=== PATIENT | male | born 1950 | race Asian ===

== ENCOUNTER 2020-04-07 09:56 | Inpatient (IN) | payer OTHER ==
[~2020-04-07] VITALS: Ht 157.5 cm; Wt 56.2 kg
--- NOTE | 2020-04-07 10:25 | NUR ---
BIBFAMILY FROM HOME TO ER BED 12. AAOX4. NOT IN RESP DISTRESS. AMBUALTORY. CAME IN FOR URINARY RETENTION SINCE LAST NIGHT AND HEMATURIA. PAIN IS 8/10. NOTED BRIGHT RED BLOOD. MD WAS AT THE BEDSIDE FOR EVAL. ORDERS RECEIVED, NOTED AND CARRIED OUT.
[2020-04-07] MEDS ORDERED: LIDOCAINE 2% JEL UROJET 10 ML MM ONE ×3 (10:29→13:12)
[2020-04-07] MEDS ORDERED: IV NS 0.9% 1,000 ML BAG IV ONE (10:30)
--- NOTE | 2020-04-07 10:45 | NUR ---
COUDE CATH INSERTED FR16. STRICT STERILE TECHNIQUE OBSERVED DURING PROCEDURE.BRIGHT RED BLOOD URINARY OUTPUT. SPICIMEN SENT TO LAB
[2020-04-07 11:05] LABS: BASOPHILS % (AUTO) 0.3 % (0.0-2.0); EOSINOPHILS % (AUTO) 0.6 % (0.0-6.0); HEMATOCRIT 41 % (39-51); HEMOGLOBIN 13.4 g/dL (13.5-17.5); LYMPHOCYTES # (AUTO) 1.3 /CMM (0.8-4.8); LYMPHOCYTES % (AUTO) 12.4 % (20.0-44.0); MEAN CORPUSCULAR HGB CONC 33 g/dl (31.0-36.0); MEAN CORPUSCULAR VOLUME 88 fL (80-96); MONOCYTES # (AUTO) 0.4 /CMM (0.1-1.30); MONOCYTES % (AUTO) 4.2 % (2.0-12.0); NEUTROPHILS # (AUTO) 8.3 /CMM (1.8-8.9); NEUTROPHILS % (AUTO) 82.5 % (43.0-81.0); PLATELET COUNT (AUTO) 321 /CMM (150-450); RED BLOOD CELL COUNT(AUTO) 4.59 MIL/uL (4.5-6.0); WHITE BLOOD COUNT (AUTO) 10.1 K/uL (4.3-11.0)
[2020-04-07 11:06] LABS: BILIRUBIN,URINE LARGE (NEGATIVE); COLOR,URINE RED (YELLOW); LEUKOCYTE ESTERASE ,URINE Large (NEGATIVE); NITRITE, URINE Positive (NEGATIVE); PH,URINE 8.5 (5.0-8.0); PROTEIN,URINE >=300 mg/dl (NEGATIVE); UGLUCOSE 100 MG/DL mg/dL (NEGATIVE)
[2020-04-07 11:11] LABS: RBC,URINE TOO NUMEROUS TO COUN /HPF (0-2); WBC,URINE 0-2 /HPF (0-3)
[2020-04-07 11:13] LABS: BACTERIA,URINE Rare /HPF (None Seen); SQUAMOUS EPITHELIAL CELL,UR 0-2 /HPF (None Seen)
[2020-04-07 11:22] LABS: CALCIUM, SERUM 8.8 mg/dL (8.5-10.1); CREATININE 1.2 mg/dL (0.6-1.3); POTASSIUM 3.8 mmol/L (3.5-5.1)
--- NOTE | 2020-04-07 12:12 | NUR ---
TRAFFIC CONTROLLER CABLE/MED RECON UNABLE TO UPDATE HOME MEDICATION INFORMATION. SPOKE WITH TANNER (SON), STATED "HE TAKES MEDICATION FROM [place]".
[2020-04-07] MEDS ORDERED: MORPHINE SULFATE INJ 4 MG/ML DISP.SYRIN ONE (12:30)
[2020-04-07] MEDS ORDERED: TAMS-12 PO (12:30)
--- NOTE | 2020-04-07 12:30 | NUR ---
COUDE CATH WAS REPLACED WITH 3WAY CATH AND STARTED ON BLADDER IRRIGATION.
[2020-04-07] MEDS: MORPHINE SULFATE INJ 4 MG/ML DISP.SYRIN IV PRN (12:40)
--- NOTE | 2020-04-07 13:47 | NUR ---
3 WAY CATH WAS DISCONTINUED TO AND RESTARTED A PARKS CATH 24FR. FLUSHED AND WITH NS. NOTED CLOTS AND BRIGHT RED BLOOD
[2020-04-07] MEDS ORDERED: MAGNESIUM HYDROXIDE 30 ML UDC PO PRN (14:00)
[2020-04-07] MEDS ORDERED: Z GUARD REMEDY 2 OZ OINT TP PRN (14:00)
[2020-04-07] MEDS ORDERED: ONDANSETRON HCL/PF 4 MG/2 ML VIAL IVP PRN (14:00)
[2020-04-07] MEDS ORDERED: MAG HYDROX/AL HYDROX/SIMETH 30 ML UDC PO PRN (14:00)
--- NOTE | 2020-04-07 14:08 | NUR ---
RAPID COVID NEGATIVE PER LAB.
--- NOTE | 2020-04-07 14:20 | NUR ---
PARKS CATH MANUALLY IRRIGATED WITH NS. USED 2750ML OF ND AND OUTPUT NOTED AT 3375ML BRIGHT RED BLOOD WITH CLOTS. PT VERBALIZED RELIEF AND OUTPUT IS NOW CLEAR WITH TINGED OF BLOOD.
[2020-04-07] MEDS: CEFTRIAXONE 1 G in IV D5W 50 ML IV SCH (14:24)
--- NOTE | 2020-04-07 14:58 | NUR ---
BED 308-2 RN IMMACULATE
--- NOTE | 2020-04-07 15:15 | NUR ---
REPORT GIVEN TO LOURDES DUBOIS FOR KAYY
--- NOTE | 2020-04-07 15:59 | NUR ---
PT TRANSPORTED TO [facility] WITH EMT AND RN AT BEDSIDE W/ ACLS PROTOCOL. NAD NOTED DURING TRANSPORT.
--- NOTE | 2020-04-07 16:00 | NUR ---
RN ADMITTING NOTES PT TRANSPORTED BY [facility] TO UNIT AT THIS TIME. RECEIVED REPORT FROM [facility] RN. PT AOX4. PT ABLE TO VERBALIZE NEEDS IN [place]. NO SOB NOTED, NO S/S OF ANY ACUTE DISTRESS NOTED, NO C/O PAIN AT THIS TIME. PT NOTED WITH PARKS CATHETER DRAINING TO GRAVITY LIGHT RED URINE OUTPUT. IV ACCESS NOTED IN LAC G#20, INTACT, PATENT AND FLUSHING WELL. SKIN WARM TO TOUCH, PT STABLE ON RA SATURATING AT 99%. LUNGS ARE CLEAR TO AUSCULTATION, ACTIVE BOWEL SOUNDS IN ALL FOUR QUADRANTS, GOOD CIRCULATION NOTED, CAPILLARY REFILL <3SECONDS, PULSES PRESENT BILATERALLY, ASPIRATIONS AND SAFETY PRECAUTIONS IN PLACE AND MAINTAINED AT ALL TIMES. BED IN LOWEST LOCKED POSITION, SIDE RAILS UP, HOB ELEVATED, TABLE AND CALL LIGHT WITHIN REACH. WILL CONTINUE TO MONITOR.
[2020-04-07] MEDS: IV NS 0.9% 1,000 ML IV PRN (16:32)
[2020-04-07 16:39] VITALS: BP 157/78
--- NOTE | 2020-04-07 18:22 | NUR ---
ASSESSED PT', SKIN IS INTACT, PNEUMATIC COMPRESSION DEVICES APPLIED D/T DVT SCORE OF 2. WILL CONTINUE TO MONITOR
--- NOTE | 2020-04-07 18:45 | NUR ---
OLGA ([phone]), PT's [id number] CALLED, WAS UPDATED AND SPOKE WITH PT. WILL CONTINUE TO MONITOR
--- NOTE | 2020-04-07 19:04 | NUR ---
RN CLOSING NOTES PT AWAKE IN BED AT THIS TIME AT THIS TIME. PT REMAINED STABLE THROUGHOUT SHIFT. PT IS STABLE ON RA. ALL CARE, NEED, MEDICATIONS AND TREATMENT ADMINISTERED ANTICIPATED PER ORDER. PT KEPT CLEAN AND DRY. LINENS CHANGED AND KEPT CLEAN. PT ASSISTED PRN. ASPIRATION, RESPIRATION, AND SAFETY PRECAUTION IN PLACE AND MAINTAINED AT ALL TIMES. BED IN LOWEST LOCKED POSITION, HOB ELEVATED, SIDE RAILS UP X 2, CALL LIGHT AND TABLE WITHIN REACH. WILL ENDORSE TO CORN LAB TECHNICIAN NURSE FOR KAYY
[2020-04-07 20:00] VITALS: BP 144/75
[2020-04-08 06:35] LABS: BASOPHILS % (AUTO) 0.2 % (0.0-2.0); EOSINOPHILS % (AUTO) 0.4 % (0.0-6.0); HEMATOCRIT 29 % (39-51); LYMPHOCYTES # (AUTO) 1.4 /CMM (0.8-4.8); LYMPHOCYTES % (AUTO) 14.4 % (20.0-44.0); MEAN CORPUSCULAR HGB CONC 34 g/dl (31.0-36.0); MEAN CORPUSCULAR VOLUME 87 fL (80-96); MONOCYTES # (AUTO) 0.6 /CMM (0.1-1.30); NEUTROPHILS # (AUTO) 7.6 /CMM (1.8-8.9); PLATELET COUNT (AUTO) 268 /CMM (150-450); RED BLOOD CELL COUNT(AUTO) 3.35 MIL/uL (4.5-6.0); WHITE BLOOD COUNT (AUTO) 9.7 K/uL (4.3-11.0)
[2020-04-08 06:50] LABS: CALCIUM, SERUM 8.6 mg/dL (8.5-10.1); PHOSPHORUS 2.7 mg/dL (2.5-4.9); POTASSIUM 4.1 mmol/L (3.5-5.1)
--- NOTE | 2020-04-08 07:35 | NUR ---
MS RN OPENING NOTES RECEIVED PATIENT IN BED, AWAKE, A/O X4. PATIENT ON ROOM AIR; BREATHING EVEN AND UNLABORED. NO COMPLAINS OF PAIN AT THIS TIME. LAC IV ACCESS G # 20 PRESENT AND INFUSING NS @75 MLS/HR. PARKS CATH PRESENT WITH HEMATURIA PRESENT IN THE OUTPUT. SAFETY PRECAUTIONS IN PLACE; BED IN LOW POSITION AND LOCKED, RAILS UP X2, CALL LIGHT WITHIN REACH. WILL CONTINUE TO MONITOR PATIENT.
[2020-04-08 08:00] VITALS: BP 168/86
[2020-04-08] MEDS: TAMSULOSIN 0.4 MG CAP.SR.24H PO SCH (08:03)
[2020-04-08] MEDS: HYDROCODONE/APAP 5/325MG TABLET PO PRN ×2 (10:00→14:47)
--- NOTE | 2020-04-08 10:03 | NUR ---
MS RN NOTES PATIENT WITH HEMATURIA NOTED AND COMPLAINING OF PAIN WITH URINATION. PRN NORCO ADMINISTERED.
[2020-04-08] MEDS: CEFTRIAXONE 1 G in IV D5W 50 ML IV SCH (13:36)
--- NOTE | 2020-04-08 14:00 | NUR ---
MS RN NOTES PATIENT STARTED ON CONTINUES BLADDER IRRIGATION PER MD ORDER.
--- NOTE | 2020-04-08 14:47 | NUR ---
MS RN NOTES PATIENT COMPLAINING OF PAIN WITH URINATION. PRN NORCO ADMINISTERED.
[2020-04-08 16:00] VITALS: BP 137/68
[2020-04-08] MEDS: IV NS 0.9% 1,000 ML IV PRN (18:07)
--- NOTE | 2020-04-08 19:16 | NUR ---
MS RN CLOSING NOTES PATIENT REMAINS IN BED, AWAKE, A/O X4. PATIENT ON ROOM AIR; BREATHING EVEN AND UNLABORED. PAIN TREATED WITH PRN NORCO. LAC IV ACCESS G # 20 PRESENT AND INFUSING NS @75 MLS/HR. PARKS CATH PRESENT WITH HEMATURIA PRESENT IN THE OUTPUT; CONTINUES BLADDER IRRIGATION IS RUNNING. ALL NEEDS ATTENDED THROUGHOUT THE DAY. SAFETY PRECAUTIONS IN PLACE; BED IN LOW POSITION AND LOCKED, RAILS UP X2, CALL LIGHT WITHIN REACH. WILL ENDORSE TO BARN AND PROPERTY MANAGER NURSE.
[2020-04-08] MEDS: MORPHINE SULFATE INJ 2 MG/ML DISP.SYRIN IV PRN ×2 (20:30→22:09)
--- NOTE | 2020-04-08 20:35 | NUR ---
BIAS MACHINE OPERATOR HELPER INITIAL NOTES RECEIVED REPORT FROM AM NURSE AND SEEN PT IN BED WITH BLADDER IRRIGATION AT 500ML/HR . NOTICED STILL HAVE BLOOD IN HIS URINE AND SOME CLOTS. PT COMPLAINED OF PAIN , FACIAL GRIMACE NOTED AND HE WANTS TO STOP THE IRRIGATION. SPOKE TO THE PATIENT BUT BECAUSE OF LANGUAGE BARRIER, HE CALLED HIS SON JOVON HIS CELLPHONE AND I SPOKE TO HIM AND EXPLAINED TO HIM WHY THE PATIENT STILL ON BLADDER IRRIGATION , SON UNDERSTOOD AND HE'S THE ONE EXPLAINED TO HIS DAD. I ALSO TOLD HIM THAT WE JUST GIVE PAIN MEDICATION TO RELIEVE IT. NO SIGNS OF ANY DISTRESS NOTED. HE ALSO ON VIF NS AT 75ML/HR INFUSING AT THIS TIME. KEPT HIM WARM AND COMFORTABLE AT ALL TIMES. WILL CONTINUE MONITORING. PLACE CALL LIGHT AT REACH.
--- NOTE | 2020-04-08 20:40 | NUR ---
MS/RN NOTES PATIENT EXPERIENCING PAIN. PATIENT GIVEN MORPHINE 2 MG IVP. V/S ARE STABLE. WILL CONTINUE TO MONITOR.
[2020-04-08 20:42] VITALS: BP 158/81
--- NOTE | 2020-04-08 22:09 | NUR ---
ms retail client manager notes pt still complaining of bladder pain and asking for another pain shot. 2 mg morphine administered by Charge nurse Joy watst iVP as ordered to complete the dose of 4 mg morphine. then i checked the bladder by using bladder scan and found out 350 ml still retaining and noticed some blood clots on his urine output. pain on and off then Me and Rachel/Rn decided to do manual bladder irrigation to checked if have more blood clots inside his penis that doesn't go trough the lee .Irrigate with 100 ml of NS then aspirate and noticed big blood clots came out. we did 2 more then noticed water freely came out so started to connect again to bladder irrigation 500 ml/hr as ordered. Then Patient stated "good"with smile on his face that means he feel relieved . kept him warm and comfortable at all time. place call light at reach. will continue monitoring.
--- NOTE | 2020-04-09 | NUR ---
ms plasma cutting machine operator notes pt resting at this time with bladder irrigation still going on . IVF still infusing as well. still have blood clots noted from his urine output. No sign sof nay distress noted. kept him warm and comfortable at all times. will continue monitoring.
--- NOTE | 2020-04-09 03:30 | NUR ---
outdoor advertising leasing agent notes pt woke up and started moaning and screaming for pain , and noticed he's holding he's Penis and saying "pain pain pain. i did another manual irrigation and noticed 3 clots come out. then after that patient asked for pain medication. Morphine will administer by another nurse as order. kept him warm , comfortable and safe at all times. Continue bladder irrigation infusing again as ordered.
[2020-04-09] MEDS: MORPHINE SULFATE INJ 4 MG/ML DISP.SYRIN IV PRN ×2 (03:56→11:02)
--- NOTE | 2020-04-09 04:35 | NUR ---
ms riley notes pt checked he's sleeping at this time no signs of any discomfort and any acute distress noted. Bladder irrigation still going on . kept him warm and comfortable at all times. will continue monitoring. place call light at reach.
[2020-04-09 07:19] LABS: BASOPHILS % (AUTO) 0.5 % (0.0-2.0); EOSINOPHILS % (AUTO) 0.8 % (0.0-6.0); HEMATOCRIT 28 % (39-51); HEMOGLOBIN 9.2 g/dL (13.5-17.5); LYMPHOCYTES # (AUTO) 1.6 /CMM (0.8-4.8); LYMPHOCYTES % (AUTO) 17.3 % (20.0-44.0); MEAN CORPUSCULAR HGB CONC 33 g/dl (31.0-36.0); MEAN CORPUSCULAR VOLUME 88 fL (80-96); MONOCYTES # (AUTO) 0.6 /CMM (0.1-1.30); MONOCYTES % (AUTO) 6.4 % (2.0-12.0); PLATELET COUNT (AUTO) 268 /CMM (150-450); RED BLOOD CELL COUNT(AUTO) 3.15 MIL/uL (4.5-6.0); WHITE BLOOD COUNT (AUTO) 9.3 K/uL (4.3-11.0)
--- NOTE | 2020-04-09 07:23 | NUR ---
MS MATTRESS MAKER CLOSING NOTES PT AWAKE AND ALERT SEEMS NOT IN PAIN AT THIS TIME. HE STATED "GOOD". HE STILL ON CONTINOUS BLADDER IRRIGATION . AND NOTICED AT THIS TIME CLEAR OUTPUT COMING OUT. SLEPT AFTER MORPHINE 4 MG GIVEN EARLIER. NO SIGNS OF ANY ACUTE DISTRESS NOTED. KEPT HIM WARM AND COMFORTABLE AT ALL TIMES. ENDORSE TO AM NURSE FOR CONTINUITY OF CARE. PLACE CALL LIGHT AT REACH.
--- NOTE | 2020-04-09 07:30 | NUR ---
MS RN OPENING NOTES PATIENT RECEIVED IN BED. A/O X3. NO SOB NOTED. NO S/S OF RESPIRATORY DISTRESS. IV ACCESS ON L AC #20 G. PARKS CATH DRAINING BLOODY URINE WITH CLOTS WITH OUTPUT OF 1L, 0.9 NaCl IRRIGATION ONGOING @ 600 ML/HR. SAFETY MEASURES MAINTAINED. BED IN LOWEST POSITION, BRAKES LOCKED. SIDE RAILS UP. CALL LIGHT WITHIN REACH. WILL CONTINUE PLAN OF CARE. WILL CONTINUE PLAN OF CARE.
[2020-04-09 07:39] LABS: CALCIUM, SERUM 8.4 mg/dL (8.5-10.1); POTASSIUM 4.2 mmol/L (3.5-5.1)
[2020-04-09 08:00] VITALS: BP 144/69
[2020-04-09] MEDS: TAMSULOSIN 0.4 MG CAP.SR.24H PO SCH (09:12)
[2020-04-09] MEDS: CEFTRIAXONE 1 G in IV D5W 50 ML IV SCH (14:09)
[2020-04-09] MEDS: MORPHINE SULFATE INJ 2 MG/ML DISP.SYRIN IV PRN ×2 (15:28→20:31)
--- NOTE | 2020-04-09 18:18 | NUR ---
MS RN CLOSING NOTES PATIENT IN BED. A/O X3. NO SOB NOTED. IN NO APPARENT DISTRESS. IV ACCESS ON L AC #20 G. PARKS CATH DRAINING PINKISH URINE WITH STILL SOME PRESENCE OF CLOTS WITH TOTAL OUTPUT OF 6,850, WITH CONTINUOUS 0.9 NaCl BLADDER IRRIGATION @ 600 ML/HR. ABLE TO MAKE NEEDS KNOWN. ROUTINE MEDS WERE GIVEN ORDERED. SAFETY MEASURES MAINTAINED. BED IN LOWEST POSITION, BRAKES LOCKED. SIDE RAILS UP. CALL LIGHT WITHIN REACH. WILL ENDORSE TO HAND II CUTTER FOR CONTINUITY OF CARE.
--- NOTE | 2020-04-09 19:51 | NUR ---
ms riley initial notes received report from am nurse while doing our rounds and seen pt in bed awake and alert watching TV at this time. still on Bladder irrigation 600ml/hr as ordered. noticed clear output at this time. No signs of any distress noted. kept him warm and comfortable at all times. place call light at reach, bed alarm set for safety. will continue monitoring.
[2020-04-09 20:00] VITALS: BP 166/90
[2020-04-09] MEDS: ACETAMINOPHEN 325 MG TABLET PO PRN (23:28)
--- NOTE | 2020-04-10 | NUR ---
ms riley notes pt sleeping comfortably in bed without any distress noted. Still on continous bladder irrigation. kept him warm and comfortable at all times. will continue monitoring. place call light at reach.
--- NOTE | 2020-04-10 07:03 | NUR ---
ms lug breaker and wire puller closing notes pt awake and alert wants to sit on the chair and asking for warm blanket. not in any acute distress noted. Stable throughout the night and all needs met. patient asking when he can go home and wants to discontinue his bladder irrigation. I explained to him why he still needs it but its depend on his MD today if they want to discontinue or continue. kept him warm and comfortable at all times. will endorse to am nurse for continuity of care.
[2020-04-10] MEDS ORDERED: SULF1TAB48 PO (07:34)
[2020-04-10 08:00] VITALS: BP 165/85
[2020-04-10] MEDS: TAMSULOSIN 0.4 MG CAP.SR.24H PO SCH (08:25)
[2020-04-10] MEDS: ACETAMINOPHEN 325 MG TABLET PO PRN (10:20)
--- NOTE | 2020-04-10 10:22 | NUR ---
MS RN NOTE PT STATED 9/10 PAIN. PT WAS ADMINISTERED PRN DOSE OF 650MG OF TYLENOL.
[2020-04-10] MEDS: CEFTRIAXONE 1 G in IV D5W 50 ML IV SCH (14:53)
--- NOTE | 2020-04-10 16:29 | NUR ---
RN NOTE PRIOR DISCHARGE PARKS CATH REMOVED AND THE PATIENT URINATED CLEAR, LIGHT YELLOW COLOR URINE NO BLADDER DISTENSION NOTED. DENIED PAIN. DENIES SOB. RESPIRATION REGULAR AND UNLABORED. THE PATIENT IN NO APPARENT DISTRESS. THE PATIENT ALERT AND ORIENTED X4. LEFT THE HOSPITAL IN STABLE CONDITION IN A PRIVATE CAR WITH HIS SON.
== END 2020-04-10 15:30 | disposition home or self-care (01) | DRG 501 ==
LOC: ER 09:56 → TRANSITION 11:44 → MED 15:14
PROVIDERS: ADMIT Internal Medicine; ATTEND Family Medicine
PROC: 0T9B70Z Drainage of Bladder with Drainage Device, Via Natural or Artificial Opening (ICD-10-PCS; principal; 2020-04-07)
DX: N40.1 Benign prostatic hyperplasia with lower urinary tract symptoms (principal); I10 Essential (primary) hypertension; N13.8 Other obstructive and reflux uropathy; R33.8 Other retention of urine; R31.0 Gross hematuria; Z79.899 Other long term (current) drug therapy; B96.89 Other specified bacterial agents as the cause of diseases classified elsewhere; B37.49 Other urogenital candidiasis
CPT/HCPCS: 36415; 80048-TC; 81001; 83735-TC; 84100-TC; 85025-TC; 85730-TC; 87081-TC; 87086-TC; A4217; G0378; J0696; J2270; J3490; J7030; J7060

== ENCOUNTER 2020-04-12 13:31 | Emergency (ER) | payer OTHER ==
[~2020-04-12] VITALS: Ht 152.4 cm; Wt 59.0 kg
[~2020-04-12 13:31] MED LIST: SULF1TAB48 PO; TAMS-12 PO
--- NOTE | 2020-04-12 13:31 | NUR ---
PT BIB DAUGHTER C/O URINARY RETENTION SINCE LAST NIGHT. PT IS AAOX4 SAMMARINESE SPEAKING ONLY, V/S STABLE, KEPT RESTED AND COMFORTABLE. WILL CONTINUE TO MONITOR.
[2020-04-12] MEDS ORDERED: LIDOCAINE 2% JEL UROJET 10 ML MM ONE ×2 (13:48→15:30)
--- NOTE | 2020-04-12 14:10 | NUR ---
PARKS CATH INSERTED COLLECTED 450CC OF URINE OUTPUT. AWARE.
--- NOTE | 2020-04-12 14:46 | NUR ---
PT'S DAUGHTER YESI [phone]
[2020-04-12 15:13] LABS: BILIRUBIN,URINE Negative (NEGATIVE); COLOR,URINE YELLOW (YELLOW); LEUKOCYTE ESTERASE ,URINE Negative (NEGATIVE); NITRITE, URINE Negative (NEGATIVE); PH,URINE 6.5 (5.0-8.0); PROTEIN,URINE Negative (NEGATIVE); UGLUCOSE Negative (NEGATIVE); UROBILINOGEN,URINE 0.2 EU/dL (0.2)
[2020-04-12 15:17] LABS: BACTERIA,URINE Few /HPF (None Seen); SQUAMOUS EPITHELIAL CELL,UR Few /HPF (None Seen); WBC,URINE 0-2 /HPF (0-3)
--- NOTE | 2020-04-12 15:21 | NUR ---
PT REFUSED BLOOD DRAW. AWARE.
[2020-04-12 16:17] LABS: BASOPHILS % (AUTO) 0.4 % (0.0-2.0); EOSINOPHILS % (AUTO) 0.9 % (0.0-6.0); HEMATOCRIT 28 % (39-51); HEMOGLOBIN 9.4 g/dL (13.5-17.5); LYMPHOCYTES # (AUTO) 1.3 /CMM (0.8-4.8); LYMPHOCYTES % (AUTO) 12.4 % (20.0-44.0); MEAN CORPUSCULAR HGB CONC 34 g/dl (31.0-36.0); MEAN CORPUSCULAR VOLUME 88 fL (80-96); MONOCYTES # (AUTO) 0.4 /CMM (0.1-1.30); MONOCYTES % (AUTO) 4.1 % (2.0-12.0); NEUTROPHILS # (AUTO) 8.9 /CMM (1.8-8.9); NEUTROPHILS % (AUTO) 82.2 % (43.0-81.0); PLATELET COUNT (AUTO) 463 /CMM (150-450); RED BLOOD CELL COUNT(AUTO) 3.17 MIL/uL (4.5-6.0); WHITE BLOOD COUNT (AUTO) 10.9 K/uL (4.3-11.0)
[2020-04-12 16:32] LABS: CALCIUM, SERUM 8.8 mg/dL (8.5-10.1); CREATININE 1.1 mg/dL (0.6-1.3); POTASSIUM 3.9 mmol/L (3.5-5.1)
--- NOTE | 2020-04-12 17:35 | NUR ---
PT WILL BE DISCHARGED SUZANNE PARKS CATH INPLACED PER .
--- NOTE | 2020-04-12 17:40 | NUR ---
Patient discharged to home in stable condition. Written and verbal after care instructions given. Patient verbalizes understanding of instruction.
[2020-04-12 17:41] VITALS: BP 128/74
[2020-04-12] MEDS ORDERED: TRAM50TA2 PO (20:50)
== END 2020-04-12 17:42 | disposition home or self-care (01) ==
LOC: ER 13:35
DX: R33.9 Retention of urine, unspecified (principal); D64.9 Anemia, unspecified; I10 Essential (primary) hypertension
CPT/HCPCS: 36415; 80048; 81001; 85025; 87086; 99283; J3490

== ENCOUNTER 2020-04-12 20:27 | Emergency (ER) | payer OTHER ==
[~2020-04-12] VITALS: Ht 157.5 cm; Wt 56.2 kg
[2020-04-12 20:28] VITALS: BP 130/59
--- NOTE | 2020-04-12 20:35 | NUR ---
DR. ALANIS AT BEDSIDE FOR EVALUATION. PER REQUEST BY DR. ALANIS, PARKS CATH FLUSHED. NO LEAKAGE OR BLEEDING NOTED. PARKS DRAINING WELL.
[2020-04-12] MEDS ORDERED: TRAM50TA2 PO (20:50)
[2020-04-12] MEDS ORDERED: HYDROCODONE/APAP 5/325MG TABLET ONE (20:52)
[2020-04-12] MEDS ORDERED: HYDROCODONE/APAP 5/325MG TABLET PO ONE (21:00)
== END 2020-04-12 21:16 | disposition home or self-care (01) ==
LOC: ER 20:30
DX: T83.091A Other mechanical complication of indwelling urethral catheter, initial encounter (principal); I10 Essential (primary) hypertension; Z79.899 Other long term (current) drug therapy

== ENCOUNTER 2020-04-13 18:50 | Emergency (ER) | payer OTHER ==
[~2020-04-13] VITALS: Ht 157.5 cm; Wt 56.2 kg
[2020-04-13 19:15] VITALS: BP 186/95
--- NOTE | 2020-04-13 19:45 | NUR ---
PT'S PARKS WAS FLUSHED AND CHANGED BY ME.
== END 2020-04-13 20:09 | disposition home or self-care (01) ==
LOC: ER 18:58
DX: N39.498 Other specified urinary incontinence (principal); I10 Essential (primary) hypertension; Z79.899 Other long term (current) drug therapy